=== PATIENT | female | born 1990 | race Caucasian/White ===

== ENCOUNTER 2016-08-14 09:46 | Inpatient (IN) | payer BC ==
[2016-08-14] MEDS ORDERED: PRENA1 CHEW TA1.4 M1 PO (10:27)
[2016-08-14] MEDS ORDERED: OMEPRAZOLE40 M2 PO (10:28)
[2016-08-14 13:32] LABS: BASO % 0.5 % (0-2); BASO ABSOLUTE COUNT 0.1 tho/cmm (0.0-0.2); EOSINOPHIL ABSOLUTE COUNT 0.1 tho/cmm (0.0-0.7); HCT-HEMATOCRIT 31.4 % (34.0-49.0); HGB-HEMOGLOBIN 10.6 gm/dl (12.0-15.5); IMMATURE GRANULOCYTES ABSOLUTE 0.09 tho/cmm (0-0.03); IMMATURE GRANULOCYTES PERCENT 0.9 % (0-0.3); LYMPH % 19.7 % (20-45); LYMPH ABSOLUTE COUNT 2.1 tho/cmm (0.8-4.5); MCH (MEAN CORPUSCULAR HGB) 28.9 pg (28.0-32.0); MCHC MEAN CORPUSCULAR HGB CONC 33.8 % (32.0-36.0); MCV (MEAN CELL VOLUME) 85.6 fl (82.0-96.0); MONO % 6.9 % (0-12); MONOCYTE ABSOLUTE COUNT 0.7 tho/cmm (0.0-1.2); NEUTROPHIL ABSOLUTE COUNT 7.5 tho/cmm (1.6-8.0); NEUTROPHIL-AUTOMATED 7.5 tho/cmm (1.6-8.0); PLATELET COUNT 338 tho/cmm (150-450); RED BLOOD COUNT 3.67 mil/cmm (4.00-5.20); WHITE BLOOD COUNT 10.6 tho/cmm (4.0-10.0)
[2016-08-15 16:39] LABS: BASO % 0.2 % (0-2); EOS % 0.8 % (0-7); EOSINOPHIL ABSOLUTE COUNT 0.2 tho/cmm (0.0-0.7); HCT-HEMATOCRIT 29.2 % (34.0-49.0); IMMATURE GRANULOCYTES ABSOLUTE 0.11 tho/cmm (0-0.03); IMMATURE GRANULOCYTES PERCENT 0.6 % (0-0.3); LYMPH % 13.2 % (20-45); LYMPH ABSOLUTE COUNT 2.5 tho/cmm (0.8-4.5); MCH (MEAN CORPUSCULAR HGB) 29.2 pg (28.0-32.0); MCHC MEAN CORPUSCULAR HGB CONC 34.2 % (32.0-36.0); MCV (MEAN CELL VOLUME) 85.4 fl (82.0-96.0); MEAN PLATELET VOLUME 9.9 cmc (9.4-12.4); MONO % 7.3 % (0-12); MONOCYTE ABSOLUTE COUNT 1.4 tho/cmm (0.0-1.2); NEUTROPHIL ABSOLUTE COUNT 14.9 tho/cmm (1.6-8.0); NEUTROPHIL-AUTOMATED 14.9 tho/cmm (1.6-8.0); NEUTROPHILS % 77.9 % (40-80); PLATELET COUNT 311 tho/cmm (150-450); RED BLOOD COUNT 3.42 mil/cmm (4.00-5.20)
[2016-08-15 16:50] LABS: WHITE BLOOD COUNT 19.2 tho/cmm (4.0-10.0)
[2016-08-17] MEDS ORDERED: IBUPROFEN800 M1 PO (02:34)
[2016-08-17] MEDS ORDERED: MIRALAX17 G2 PO (02:35)
[2016-08-17] MEDS ORDERED: AUGMENTIN 875-1 EAC2 PO (02:36)
[2016-08-17] MEDS ORDERED: SENNA PLUS TAB1 EAC1 PO (10:31)
[2016-08-17] MEDS ORDERED: NORCO 5-325 TA1 EACH PO (10:32)
== END 2016-08-17 12:30 | DRG 775 ==
LOC: LDR 09:46 → OBGF 08-15 08:54
PROVIDERS: ADMIT Obstetrics & Gynecology
PROC: 10E0XZZ Delivery of Products of Conception, External Approach (ICD-10-PCS; principal; 2016-08-14)
PROC: 0DQP0ZZ Repair Rectum, Open Approach (ICD-10-PCS; 2016-08-14)
DX: O48.0 Post-term pregnancy (principal); O70.3 Fourth degree perineal laceration during delivery; O69.81X0 Labor and delivery complicated by cord around neck, without compression, not applicable or unspecified; Z3A.40 40 weeks gestation of pregnancy; Z37.0 Single live birth
CPT/HCPCS: J2405; J2590; J3010